=== PATIENT | male | born 1965 | race Two or more races ===

== ENCOUNTER 2021-12-11 19:54 | Emergency (ER) | payer SELFPAY ==
[~2021-12-11] VITALS: Ht 180.3 cm; Wt 117.9 kg
[2021-12-11 20:05] VITALS: BP 147/84
[2021-12-11] MEDS ORDERED: KETOROLAC TROMETH 60MG/2ML VIAL IM ONE (20:15)
== END 2021-12-11 22:12 ==
LOC: ER 19:54
DX: S73.101A Unspecified sprain of right hip, initial encounter (principal); V89.2XXA Person injured in unspecified motor-vehicle accident, traffic, initial encounter; Y93.89 Activity, other specified; Y92.89 Other specified places as the place of occurrence of the external cause; Y99.8 Other external cause status
CPT/HCPCS: 73552; 96372; 99283; J1885